=== PATIENT | female | born 1960 | race Caucasian/White ===

== ENCOUNTER → 2025-01-09 | Outpatient (CLI) | payer MEDICARE, SELFPAY ==
--- NOTE | 2025-01-09 12:00 | XR_ITS ---
Examination: Bone densitometry Date and time of exam:January 09, 2025 1216 hours INDICATIONS: Menopause age 47, seizure medication 20 years, postmenopausal fractures: Tibia Technique: Lumbar spine and hip total bone mineralization values of an calculated. Peak reference and age match control results have been displayed. Findings: Lumbar spine total bone mineralization is0.836 gm/cm2. This is 1.9 standard deviations below peak reference. This is 0.2 standard deviations above age-matched controls. Hip total bone mineralization is 0.816 gm/cm2 This is 1.0 standard deviations below peak reference. This is 0.2 standard deviations above age-matched controls Impression: There is osteopenia based on lumbar spine measurements. There is osteopenia based on hip measurements Lumbar mineralization is decreased 6.2% compared with November 13, 2014 Hip mineralization is decreased 1.4% compared with November 13, 2014
== END | disposition home or self-care (01) ==
PROVIDERS: Referring Provider Nurse Practitioner Family; Visit Provider Nurse Practitioner Family
DX: Z13.820 Encounter for screening for osteoporosis (principal); M85.89 Other specified disorders of bone density and structure, multiple sites
CPT/HCPCS: 77080

== ENCOUNTER → 2025-08-01 | Outpatient (CLI) | payer MEDICARE, SELFPAY ==
--- NOTE | 2025-08-01 07:30 | XR_ITS ---
Examination: CT abdomen and pelvis without contrast. Coronal 3-D reconstructions. Sagittal 2-D reconstructions. Date and time of exam:August 01, 2025 0737 hours INDICATIONS: Onset abdominal pain and diarrhea beginning one year ago CTDI: vol (mGy): 8.21 DLP: (mGycm): 153 Technique: Axial images of the abdomen have been obtained, 3 mm slice thickness Intravenous contrast material has not been administered. Low dose protocols were performed. One or more of the following dose reduction techniques were used; automated exposure control, adjustment of the mA and/or KV according to patient size, use of iterative reconstruction technique. Findings: Diffuse fatty infiltration throughout the liver Absent gallbladder Common bile duct 8 mm no common bile duct stones No pancreatic mass Spleen not enlarged Moderate renal scar formation No renal or ureteral calculi, no hydronephrosis No pericecal inflammatory change No pelvic mass No bowel obstruction or diverticulitis No pericecal inflammatory change Urinary bladder intact Prominent osteopenia grade 1 anterolisthesis L4 on L5, mild chronic osteoporotic compressions T12 T11 IMPRESSION: Absent gallbladder No common bile duct stones Moderate bilateral renal scar formation No hydronephrosis or ureteral calculi No bowel obstruction or diverticulitis.
== END | disposition home or self-care (01) ==
PROVIDERS: PCP Family Medicine; Referring Provider Nurse Practitioner Family; Visit Provider Nurse Practitioner Family
DX: N28.89 Other specified disorders of kidney and ureter (principal); Z90.49 Acquired absence of other specified parts of digestive tract
CPT/HCPCS: 74176

== ENCOUNTER → 2025-10-10 | Outpatient (CLI) | payer MEDICARE, SELFPAY ==
--- NOTE | 2025-10-10 08:43 | XR_ITS ---
Examination: Bilateral hands, 6 views. Technique: AP, Oblique, Lateral each hand total 6 views Date and time of exam: October 10, 2025, 0904 hours INDICATIONS: Bilateral hand pain 10 years, surgery to the left wrist 20 years ago Findings: Severe osteopenia Old fracture deformity distal left radial metaphysis Old ununited ulnar styloid tip fracture left wrist Moderate osteoarthritis left first carpometacarpal joint Mild osteoarthritis distal interphalangeal joint second through fifth digits left hand Moderate osteoarthritis right first carpometacarpal joint Mild osteoarthritis distal interphalangeal joints second through fifth digits right hand IMPRESSION: Osteoarthritis as above
== END | disposition home or self-care (01) ==
PROVIDERS: PCP Family Medicine; Referring Provider Physician Assistant Medical; Visit Provider Physician Assistant Medical
DX: M18.0 Bilateral primary osteoarthritis of first carpometacarpal joints (principal); M19.042 Primary osteoarthritis, left hand; M19.041 Primary osteoarthritis, right hand
CPT/HCPCS: 73130